=== PATIENT | male | born 1950 | race Caucasian/White ===

== ENCOUNTER 2020-03-21 13:50 | Outpatient (CLI) | payer MEDICARE ==
--- NOTE | 2020-03-21 16:12 | RAD ---
CERVICAL SPINE THREE VIEWS: History: Post op cervical spine. FINDINGS: Post op changes are noted of an anterior profusion procedure. The anterior plate and screws transfix C3, C4, C5, C6 and C7. Interbody implants. Posterior alignment is maintained. C2-3 disc space is pres erved. IMPRESSION: Post op fusion changes cervical spine from C3 through C7. POS: OFF
== END 2020-03-21 13:51 | disposition home or self-care (01) ==
LOC: NAV RAD 13:50
PROVIDERS: ATTEND Neurological Surgery
DX: M50.00 Cervical disc disorder with myelopathy, unspecified cervical region (principal); Z98.1 Arthrodesis status
CPT/HCPCS: 72040